=== PATIENT | male | born 1985 | race Caucasian/White ===

== ENCOUNTER 2017-03-08 13:21 | Emergency (ER) | payer MEDICAID ==
[~2017-03-08] VITALS: Ht 139.7 cm; Wt 32.3 kg
[2017-03-08 13:25] VITALS: BP 97/57
--- NOTE | 2017-03-08 15:02 | NUR ---
Patient ambulated to [facility] with family. RN evaluating patient.
[2017-03-08] MEDS ORDERED: ACETAMINOPHEN EXTRA STRENGTH 500 MG TAB PO ONE (15:15)
[2017-03-08] MEDS ORDERED: NACL 0.9% 1,000 ML IV ONE (15:15)
[2017-03-08 16:04] LABS: HEMATOCRIT 38.8 % (36-52); HEMOGLOBIN 13.6 g/dL (12.0-18.0); MEAN CORPUSCULAR HEMOGLOBIN 30 pg (27-31); MEAN CORPUSCULAR HGB CONC 35 g/dL (33-37); MEAN CORPUSCULAR VOLUME 85 fL (80-94); PLATELET COUNT (AUTO) 132 K/uL (140-450); RED BLOOD CELL COUNT(AUTO) 4.58 MIL/uL (4.20-6.10); RED CELL DISTRIBUTION WIDTH 12.4 % (11.6-13.7); WHITE BLOOD COUNT (AUTO) 8.4 K/uL (4.8-10.8)
[2017-03-08 16:14] LABS: ANION GAP 16.3 (8-16); CARBON DIOXIDE 26.5 mmol/L (21-32); CREATININE 0.8 mg/dL (0.7-1.3); POTASSIUM 3.8 mmol/L (3.5-5.1)
[2017-03-08 16:20] LABS: LYMPHOCYTES % (MANUAL) 12 % (20-46); MONOCYTES % (MANUAL) 6 % (5-12)
[2017-03-08 16:26] LABS: ALBUMIN 4.2 g/dL (3.4-5.0); TOTAL BILIRUBIN 0.6 mg/dL (0.0-1.0)
--- NOTE | 2017-03-08 17:00 | NUR ---
DR BERNAL AT [facility].
--- NOTE | 2017-03-08 17:42 | NUR ---
PATIENT IN NO APPARENT DISTRESS. NO COUGH.FAMILY WITH PATIENT
--- NOTE | 2017-03-08 17:42 | NUR ---
AWAITING FOR DISPOSITION
[2017-03-08] MEDS ORDERED: IBUPROFEN 600 MG TAB PO ONE (18:15)
--- NOTE | 2017-03-08 19:24 | NUR ---
AWAITING FOR DISPOSITION. COLLECTED URINE. PATIENT IN NO DISTRESS
[2017-03-08 19:40] VITALS: BP 112/57
--- NOTE | 2017-03-08 19:40 | NUR ---
Patient discharged with v/s stable. Written and verbal after care instructions given and explained. Patient alert, oriented and verbalized understanding of instructions. Ambulatory with steady gait. All questions addressed prior to discharge. ID band removed. Patient advised to follow up with PMD. Rx of TAMIFLU 75MG 1CAP, BID given. Patient educated on indication of medication including possible reaction and side effects. Opportunity to ask questions provided and answered.
== END 2017-03-08 19:40 | disposition home or self-care (01) ==
LOC: MED 13:21
DX: B34.9 Viral infection, unspecified (principal); D72.825 Bandemia; P07.21 Extreme immaturity of newborn, gestational age less than 23 completed weeks
CPT/HCPCS: 36415; 71045; 80053; 81002; 85025; 87804; 96360; 99285; J7030

== ENCOUNTER 2017-03-09 09:42 | Emergency (ER) | payer MEDICAID ==
[~2017-03-09] VITALS: Ht 139.7 cm; Wt 31.5 kg
[2017-03-09 09:58] VITALS: BP 93/52
--- NOTE | 2017-03-09 10:15 | NUR ---
30m bib mother presents to ER for the recheck for blood work. Per mother, pt has been having fever, n/v, and productive cough x 3-4days. Pt ao, pt wit hx of mental delay, with steady gait. Per mother pt is at neuro baseline. RR are even and unlabored. Pt positioned for comfort, bed down. Awaiting ER MD concepcion. Will continue to monitor. All needs met at this time.
[2017-03-09] MEDS ORDERED: IBUPROFEN CHILDRENS 100 MG/5 ML UDC ONE (10:20)
[2017-03-09] MEDS ORDERED: ACETAMINOPHEN EXTRA STRENGTH 500 MG TAB ONE (10:20)
--- NOTE | 2017-03-09 10:57 | NUR ---
lab by bedside
[2017-03-09 11:12] LABS: HEMATOCRIT 37.7 % (36-52); MEAN CORPUSCULAR HEMOGLOBIN 30 pg (27-31); MEAN CORPUSCULAR HGB CONC 35 g/dL (33-37); MEAN CORPUSCULAR VOLUME 86 fL (80-94); PLATELET COUNT (AUTO) 127 K/uL (140-450); RED CELL DISTRIBUTION WIDTH 12.6 % (11.6-13.7); WHITE BLOOD COUNT (AUTO) 8.1 K/uL (4.8-10.8)
[2017-03-09 11:28] LABS: EOSINOPHILS % (MANUAL) 2 % (0-4); LYMPHOCYTES % (MANUAL) 14 % (20-46); MONOCYTES % (MANUAL) 9 % (5-12)
[2017-03-09 11:30] LABS: ANION GAP 14.8 (8-16); CARBON DIOXIDE 23.2 mmol/L (21-32); CREATININE 0.8 mg/dL (0.7-1.3)
[2017-03-09 11:41] LABS: APPEARANCE,URINE HAZY (CLEAR); BILIRUBIN,URINE NEGATIVE (NEGATIVE); BLOOD, URINE TRACE-I (NEGATIVE); COLOR,URINE YELLOW (YELLOW); LEUKOCYTE ESTERASE ,URINE NEGATIVE (NEGATIVE); NITRITE, URINE NEGATIVE (NEGATIVE); PH,URINE 7.5 (5.0-9.0); UGLUCOSE NEGATIVE (NEGATIVE)
[2017-03-09 11:50] LABS: RBC,URINE 3-10 (FEW) /HPF (0-5); WBC,URINE 0-5 (RARE) /HPF (0-5)
[2017-03-09 12:05] VITALS: BP 106/61
--- NOTE | 2017-03-09 12:05 | NUR ---
Patient discharged with v/s stable. Written and verbal after care instructions given and explained. Patient verbalized understanding. Ambulatory with steady gait. All questions addressed prior to discharge. Advised to follow up with PMD.
== END 2017-03-09 12:05 | disposition home or self-care (01) ==
LOC: MED 09:42 → CANBEDREQ 11:21 → MED 12:05
DX: B34.9 Viral infection, unspecified (principal); D72.825 Bandemia
CPT/HCPCS: 36415; 80048; 81001; 83605; 85025; 87040; 87086; 99284